=== PATIENT | female | born 1970 | race Caucasian/White ===

== ENCOUNTER 2024-02-04 12:18 | Emergency (ER) | payer MEDICAID ==
[~2024-02-04] VITALS: Ht 162.6 cm; Wt 52.2 kg
[2024-02-04 14:15] VITALS: BP 134/80; TEMP 97; O2SAT 99
== END 2024-02-04 14:15 | disposition home or self-care (01) ==
LOC: ER 12:18
DX: M20.011 Mallet finger of right finger(s) (principal)
CPT/HCPCS: 73120; A4606; A4663